=== PATIENT | female | born 1995 | race Hispanic/Latino ===

== ENCOUNTER 2022-01-23 13:42 | Emergency (ER) | payer OTHER ==
[~2022-01-23] VITALS: Ht 149.9 cm; Wt 79.4 kg
[2022-01-23 14:20] LABS: HEMATOCRIT 39.6 % (34.2-44.1); HEMOGLOBIN 13.4 g/dL (12.0-16.0); MEAN CORPUSCULAR HEMOGLOBIN 28.5 pg (28-32); MEAN CORPUSCULAR HGB CONC 33.8 g/dL (31-35); MEAN CORPUSCULAR VOLUME 84.1 fL (81-99); PLATELET COUNT 393 x10e3/uL (140-360); RED BLOOD COUNT 4.71 x10e6/uL (3.6-5.1); RED CELL DISTRIBUTION WIDTH 13.2 % (11.7-14.4)
[2022-01-23 14:21] LABS: BASOPHILS # (AUTO) 0.1 (0.0-0.1); BASOPHILS % 0.7 % (0.0-1.0); CLARITY,URINE CLEAR (CLEAR); COLOR,URINE YELLOW (YELLOW); EOSINOPHILS # (AUTO) 0.2 (0.0-0.4); EOSINOPHILS % 2.7 % (0.0-6.0); KETONES,URINE NEGATIVE (NEGATIVE); LEUKOCYTE ESTERASE ,URINE NEGATIVE (NEGATIVE); LYMPHOCYTES # (AUTO) 2.2 (1.0-3.2); LYMPHOCYTES % 29.7 % (18.0-39.1); MONOCYTES # (AUTO) 0.4 (0.2-0.8); NEUTROPHILS # (AUTO) 4.4 (2.1-6.9); NEUTROPHILS % 60.6 % (38.7-80.0); NITRITE,URINE NEGATIVE (NEGATIVE); PROTEIN,URINE DIPSTICK NEGATIVE (NEGATIVE); URINE UROBILINOGEN 0.2 mg/dL (0.2 - 1)
[2022-01-23 14:25] LABS: EPITHELIAL CELLS,URINE RARE /LPF; MUCUS,URINE FEW (RARE); RBC,URINE 0-5 /HPF (0-5); WBC,URINE (MAN) 0-5 /HPF (0-5)
[2022-01-23 14:40] LABS: ALBUMIN 3.8 g/dL (3.5-5.0); ALBUMIN/GLOBULIN RATIO 0.9 (0.8-2.0); ANION GAP 14.9 mmol/L (8-16); CALCIUM 9.2 mg/dL (8.4-10.2); CREATININE, SERUM 0.65 mg/dL (0.57-1.11); POTASSIUM 3.9 mmol/L (3.5-5.1)
[2022-01-23 17:21] VITALS: BP 128/74
== END 2022-01-23 17:15 | disposition home or self-care (01) ==
LOC: ER 13:56
DX: O20.9 Hemorrhage in early pregnancy, unspecified (principal); O20.0 Threatened abortion; E28.2 Polycystic ovarian syndrome
CPT/HCPCS: 36415; 76801; 76817; 80053; 81001; 84702; 85025; 86900; 99283

== ENCOUNTER 2024-11-08 20:39 | Emergency (ER) | payer OTHER ==
[~2024-11-08] VITALS: Ht 149.9 cm; Wt 81.6 kg
[~2024-11-08 20:39] MED LIST: CEPHALEXIN500 MG PO
[2024-11-08] MEDS ORDERED: IOPAMIDOL 370 MG/ML 100 ML INFUS..BTL INJ ONE (21:35)
[2024-11-08] MEDS: FAMOTIDINE 20 MG/2 ML VIAL IV STA (22:21)
[2024-11-08] MEDS: ONDANSETRON HCL INJ 2MG/ML 2ML 2 MG/ML VIAL IV STA (22:21)
[2024-11-08] MEDS: SODIUM CHLORIDE 0.9% 500ML 500 ML IV ONE (22:22)
[2024-11-08] MEDS: MAGNESIUM/ALUMINUM/SIMETHICONE 30 ML UDC PO ONE (23:00)
[2024-11-08 23:17] VITALS: PULSE 78; RESP 16; TEMP 98.1
[2024-11-08 23:18] VITALS: BP 130/75; PULSE 78; RESP 16; TEMP 98.1; O2SAT 96
[2024-11-08] MEDS ORDERED: MAALOX MAXIMUM355 ML PO (23:36)
== END 2024-11-08 23:46 | disposition home or self-care (01) ==
LOC: FSED 20:53
DX: R07.89 Other chest pain (principal); D68.61 Antiphospholipid syndrome; J45.909 Unspecified asthma, uncomplicated; E28.2 Polycystic ovarian syndrome
CPT/HCPCS: 71260; 80053; 81003; 81025; 84484; 85025; 85610; 99284; J2405; J7040; Q9967; 93005